=== PATIENT | male | born 1985 | race American Indian/Alaskan Native ===

== ENCOUNTER 2017-05-01 00:04 | Emergency (ER) | payer SELFPAY ==
--- NOTE | 2017-05-01 01:14 | XRay Report ---
FINAL REPORT PROCEDURE: XR HIP 2-3V RT TECHNIQUE: RIGHT hip radiographs, AP and lateral views. HISTORY: RIGHT HIP PAIN COMPARISON: No prior studies are available for comparison. FINDINGS: Fracture (s) and/or Dislocation(s): None . Joint space(s): Mild narrowing of the joint space. Soft tissues: Normal . Bone mineralization: Normal . Foreign bodies: None . IMPRESSION: No acute fracture or dislocation. Mild narrowing of the hip joint space.
[2017-05-01] MEDS ORDERED: NORCO 5/325 PO ONE (04:17)
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
[2017-05-01 04:39] VITALS: BP 140/96
== END 2017-05-01 04:38 | disposition home or self-care (01) ==
LOC: ED 00:04
DX: M25.551 Pain in right hip (principal); F17.200 Nicotine dependence, unspecified, uncomplicated; F12.10 Cannabis abuse, uncomplicated
CPT/HCPCS: 99283

== ENCOUNTER 2017-06-13 10:47 | Emergency (ER) | payer SELFPAY ==
[2017-06-13 12:14] VITALS: BP 151/96
[2017-06-13] MEDS ORDERED: ULTRAM PO ONE (12:32)
[2017-06-13] MEDS ORDERED: TORADOL IM ONE (12:32)
[2017-06-13] MEDS ORDERED: PERCOCET 5/325 PO ONE (13:18)
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
== END 2017-06-13 15:24 | disposition home or self-care (01) ==
LOC: ED 10:47
DX: G89.29 Other chronic pain (principal); M25.551 Pain in right hip; F17.210 Nicotine dependence, cigarettes, uncomplicated; F12.10 Cannabis abuse, uncomplicated
CPT/HCPCS: 96372; 99282; J1885